=== PATIENT | male | born 1965 | race Caucasian/White ===

== ENCOUNTER 2020-12-06 21:06 | Emergency (ER) | payer OTHER ==
[2020-12-06] MEDS ORDERED: Boostrix 0.5 ML (Tdap) VIAL ONE (21:25)
[2020-12-06] MEDS ORDERED: Lidocaine 1% 20 ML MDV ONE (21:25)
[2020-12-06] MEDS ORDERED: Bacitracin 1 PK ONE (22:46)
== END 2020-12-06 22:51 | disposition home or self-care (01) ==
LOC: MADERS 21:06
DX: S60.450A Superficial foreign body of right index finger, initial encounter (principal); E78.5 Hyperlipidemia, unspecified; W45.8XXA Other foreign body or object entering through skin, initial encounter
CPT/HCPCS: 90471; 90715